=== PATIENT | male | born 1965 | race African-American/Black ===

== ENCOUNTER 2018-07-31 05:30 | Emergency (ER) | payer MEDICAID ==
[~2018-07-31] VITALS: Ht 182.9 cm; Wt 69.0 kg
[2018-07-31] MEDS ORDERED: KETOROLAC 60MG/2ML VIAL IM STA (06:28)
[2018-07-31 07:55] LABS: CLARITY URINE CLEAR (CLEAR); COLOR URINE YELLOW (YELLOW); KETONES URINE NEGATIVE (NEGATIVE); LEUKOCYTE ESTERASE URINE NEGATIVE (NEGATIVE); NITRITE URINE NEGATIVE (NEGATIVE); OCCULT BLOOD URINE TRACE (NEGATIVE); PH URINE 7.5 (4.5-8.0); PROTEIN URINE 2+ (NEGATIVE); SPECIFIC GRAVITY URINE 1.009 (1.005-1.030)
[2018-07-31] MEDS ORDERED: HYDROCODONE/ACETAMINOPHEN 5/325MG TABLET PO STA (08:38)
[2018-07-31 09:40] VITALS: BP 129/85
== END 2018-07-31 09:56 | disposition home or self-care (01) ==
LOC: ER 05:30
DX: M54.41 Lumbago with sciatica, right side (principal); M25.551 Pain in right hip; M79.651 Pain in right thigh; F12.10 Cannabis abuse, uncomplicated
CPT/HCPCS: 72100; 73502; 81003; 96372; 99284; J1885

== ENCOUNTER 2018-08-05 08:56 | Inpatient (IN) | payer MEDICAID ==
[~2018-08-05] VITALS: Ht 177.8 cm; Wt 63.5 kg
[2018-08-05] MEDS ORDERED: KETOROLAC 15MG/ML VIAL IV ONE (10:00)
[2018-08-05 11:43] LABS: BASOPHILS % 0.9 % (0.0-2.0); EOSINOPHILS % 0.2 % (0.0-5.0); HEMATOCRIT. 39.7 % (42.0-52.0); HEMOGLOBIN. 12.9 g/dL (14.0-18.0); LYMPHOCYTES % 11.8 % (20.0-50.0); MEAN CORPUSCULAR HEMOGLOBIN 32.1 pg (28.0-32.0); MEAN CORPUSCULAR VOLUME 98.8 fL (80.0-94.0); MEAN PLATELET VOLUME 9.8 fl (7.4-10.4); MONOCYTES % 12.3 % (2.0-8.0); NEUTROPHILS % 74.8 % (40.0-76.0); PLATELET 183 x1000/uL (130-400); RED BLOOD CELL COUNT 4.02 mill/uL (4.7-6.1)
[2018-08-05 11:44] LABS: CHLORIDE 100 mEq/L (98-107)
[2018-08-05] MEDS ORDERED: POTASSIUM CHLORIDE 20MEQ TABLET SR PO ONE (12:00)
[2018-08-05 14:00] VITALS: BP 128/66
[2018-08-05] MEDS ORDERED: ACETAMINOPHEN 325MG TABLET PO PRN (14:30)
[2018-08-05] MEDS ORDERED: ONDANSETRON HCL 4MG/2ML INJ IV PRN (14:30)
[2018-08-05 14:51] LABS: CLARITY URINE CLEAR (CLEAR); COLOR URINE ORANGE (YELLOW); KETONES URINE 1+ (NEGATIVE); LEUKOCYTE ESTERASE URINE TRACE (NEGATIVE); NITRITE URINE NEGATIVE (NEGATIVE); OCCULT BLOOD URINE 1+ (NEGATIVE); PROTEIN URINE 2+ (NEGATIVE); SPECIFIC GRAVITY URINE 1.024 (1.005-1.030)
[2018-08-05 15:31] LABS: *AMPHETAMINES SCREEN URINE NEGATIVE (NEGATIVE)
[2018-08-05 15:32] LABS: *BARBITURATES SCREEN URINE NEGATIVE (NEGATIVE); *BENZODIAZEPINES SCREEN URINE NEGATIVE (NEGATIVE); *COCAINE SCREEN URINE NEGATIVE (NEGATIVE); CANNABINOID URINE SCREEN PRESUMTIVE POSITIVE (NEGATIVE); OPIATES URINE SCREEN PRESUMTIVE POSITIVE (NEGATIVE); PHENCYCLIDINE URINE SCREEN NEGATIVE (NEGATIVE)
[2018-08-05 15:33] LABS: METHADONE URINE SCREEN NEGATIVE (NEGATIVE)
[2018-08-05 16:00] VITALS: BP 148/97
[2018-08-05 20:00] VITALS: BP 148/97
[2018-08-05] MEDS: HYDROCODONE/ACETAMINOPHEN 5/325MG TABLET PO PRN (20:10)
[2018-08-05] MEDS: AMLODIPINE 5MG TABLET PO SCH (20:11)
[2018-08-06] VITALS: BP 134/88
[2018-08-06 04:00] VITALS: BP 135/81
[2018-08-06 07:49] LABS: HEMATOCRIT. 36.2 % (42.0-52.0); HEMOGLOBIN. 12.1 g/dL (14.0-18.0); MEAN CORPUSCULAR HEMOGLOBIN 32.8 pg (28.0-32.0); MEAN CORPUSCULAR VOLUME 97.8 fL (80.0-94.0); MEAN PLATELET VOLUME 10.1 fl (7.4-10.4); PLATELET 177 x1000/uL (130-400); RED CELL DISTRIBUTION WIDTH 13.2 % (11.6-14.6)
[2018-08-06 08:00] VITALS: BP 137/93
[2018-08-06 08:01] LABS: CHLORIDE 96 mEq/L (98-107)
[2018-08-06] MEDS: AMLODIPINE 5MG TABLET PO SCH ×2 (09:56→23:09)
[2018-08-06 12:00] VITALS: BP 148/99
[2018-08-06] MEDS: KETOROLAC 30MG/ML VIAL IV PRN ×2 (12:31→23:10)
[2018-08-06 12:54] LABS: ATYPICAL LYMPHOCYTES 1
[2018-08-06 12:55] LABS: PLATELET ESTIMATE NORMAL
[2018-08-06 16:00] VITALS: BP 125/82
[2018-08-06 20:00] VITALS: BP 134/92
[2018-08-07 04:00] VITALS: BP 126/85
[2018-08-07 08:00] VITALS: BP 114/78
[2018-08-07] MEDS: AMLODIPINE 5MG TABLET PO SCH ×2 (09:22→21:26)
[2018-08-07] MEDS: HYDROCODONE/ACETAMINOPHEN 5/325MG TABLET PO PRN ×2 (09:23→21:25)
[2018-08-07 11:42] LABS: HEMATOCRIT. 37.8 % (42.0-52.0); HEMOGLOBIN. 12.5 g/dL (14.0-18.0); MEAN CORPUSCULAR HEMOGLOBIN 32.6 pg (28.0-32.0); MEAN CORPUSCULAR VOLUME 98.4 fL (80.0-94.0); MEAN PLATELET VOLUME 9.9 fl (7.4-10.4); PLATELET 206 x1000/uL (130-400); RED BLOOD CELL COUNT 3.84 mill/uL (4.7-6.1); RED CELL DISTRIBUTION WIDTH 13.3 % (11.6-14.6)
[2018-08-07 12:00] VITALS: BP 127/85
[2018-08-07 12:50] LABS: CHLORIDE 97 mEq/L (98-107)
[2018-08-07 12:58] LABS: HDL CHOLESTEROL 103 mg/dL (40-59); LDL CHOLESTEROL 93 mg/dL (5-100)
[2018-08-07 13:44] LABS: PLATELET ESTIMATE NORMAL
[2018-08-07 16:00] VITALS: BP 120/80
[2018-08-07] MEDS ORDERED: NAPR-681 MT (16:00)
[2018-08-07] MEDS ORDERED: TLXL5 PO (16:00)
[2018-08-07 20:00] VITALS: BP 126/80
[2018-08-08] VITALS (7 sets, daily range): BP systolic 117–142; BP diastolic 74–103
[2018-08-08] MEDS: HYDROCODONE/ACETAMINOPHEN 5/325MG TABLET PO PRN ×2 (03:04→14:23)
[2018-08-08] MEDS: AMLODIPINE 5MG TABLET PO SCH ×2 (08:53→22:16)
[2018-08-08] MEDS: HALOPERIDOL LACTATE 5MG/ML VIAL IM PRN ×2 (08:53→22:25)
[2018-08-08] MEDS: ENOXAPARIN 40MG/0.4ML SYR SUBCUT SCH (08:54)
[2018-08-08] MEDS: KETOROLAC 30MG/ML VIAL IV PRN (17:40)
[2018-08-08] MEDS: QUETIAPINE FUMARATE 25MG TABLET PO SCH (22:16)
[2018-08-09] VITALS: BP 127/84
[2018-08-09 04:00] VITALS: BP 128/78
[2018-08-09] MEDS: KETOROLAC 30MG/ML VIAL IV PRN ×2 (04:52→21:32)
[2018-08-09 08:00] VITALS: BP 149/66
[2018-08-09] MEDS: ENOXAPARIN 40MG/0.4ML SYR SUBCUT SCH (09:00)
[2018-08-09] MEDS: AMLODIPINE 5MG TABLET PO SCH ×2 (09:06→21:31)
[2018-08-09 12:00] VITALS: BP 112/77
[2018-08-09] MEDS: GABAPENTIN 300MG CAPSULE PO SCH ×2 (13:06→21:31)
[2018-08-09] MEDS: HYDROCODONE/ACETAMINOPHEN 5/325MG TABLET PO PRN (13:07)
[2018-08-09 16:00] VITALS: BP 114/81
[2018-08-09 20:00] VITALS: BP 128/93
[2018-08-09] MEDS: QUETIAPINE FUMARATE 25MG TABLET PO SCH (21:31)
[2018-08-10] VITALS: BP 103/65
[2018-08-10 04:00] VITALS: BP 126/76
[2018-08-10] MEDS: KETOROLAC 30MG/ML VIAL IV PRN (05:56)
[2018-08-10] MEDS: GABAPENTIN 300MG CAPSULE PO SCH ×2 (05:56→13:09)
[2018-08-10 08:00] VITALS: BP 110/85
[2018-08-10] MEDS: ENOXAPARIN 40MG/0.4ML SYR SUBCUT SCH (08:39)
[2018-08-10] MEDS: AMLODIPINE 5MG TABLET PO SCH (08:39)
[2018-08-10 11:52] VITALS: BP 115/82
[2018-08-10 12:08] VITALS: BP 115/82
== END 2018-08-10 14:40 | disposition home or self-care (01) | DRG 347 ==
LOC: ER 09:06 → EDBEDREQ 10:58 → 6EST 12:13 → EDBEDREQ 12:16 → ENRESERV 12:53 → CANRESERV 12:53 → ENRESERV 13:50 → UNDOADMIN 15:17 → 6EST 15:17
PROVIDERS: ADMIT Internal Medicine; ATTEND Internal Medicine
DX: M47.897 Other spondylosis, lumbosacral region (principal); D64.9 Anemia, unspecified; E87.6 Hypokalemia; F31.9 Bipolar disorder, unspecified; M48.061 Spinal stenosis, lumbar region without neurogenic claudication; F17.200 Nicotine dependence, unspecified, uncomplicated; M51.26 Other intervertebral disc displacement, lumbar region; F12.90 Cannabis use, unspecified, uncomplicated; W01.0XXA Fall on same level from slipping, tripping and stumbling without subsequent striking against object, initial encounter; G89.29 Other chronic pain; Y93.89 Activity, other specified; Y92.89 Other specified places as the place of occurrence of the external cause; Y99.8 Other external cause status; Z71.6 Tobacco abuse counseling
CPT/HCPCS: 36415; 71045; 72100; 72148; 80048; 80061; 80305; 82962; 83036; 84443; 93005; 93970; 96374; 97116; 97162; 97530; 99285; J1630; J1650; J1885